=== PATIENT | male | born 1975 | race Hispanic/Latino ===

== ENCOUNTER 2017-11-14 11:49 | Emergency (ER) | payer OTHER ==
[~2017-11-14] VITALS: Ht 170.2 cm; Wt 102.1 kg
[~2017-11-14 11:49] MED LIST: ATENOLOL100 M1 PO; CINNAMON500 M1 PO; MULTIPLE VITAM1 EAC2 PO
[2017-11-14 12:10] LABS: ABSOLUTE BASOPHIL COUNT 0 /CUMM (0.0-0.2); ABSOLUTE EOSINOPHIL COUNT 0.2 /CUMM (0.0-0.7); ABSOLUTE GRANULOCYTE CT 6.3 /CUMM (1.4-6.5); ABSOLUTE LYMPH COUNT 2.4 /CUMM (1.2-3.4); ABSOLUTE MONOCYTE COUNT 0.4 /CUMM (0.10-0.60); BASOPHIL % 0.4 % (0.0-2.0); EOSINOPHIL % 2.2 % (0-5); GRANULOCYTE % 67.6 % (42.2-75.2); HEMATOCRIT 49.8 % (42-52); MEAN CORPUSCULAR HGB 29.3 PG (27.0-31.0); MEAN CORPUSCULAR HGB CONC 33.7 G/DL (33.0-37.0); MEAN CORPUSCULAR VOLUME 87.1 FL (80.0-94.0); MEAN PLATELET VOLUME 6.4 FL (7.4-10.4); PLATELET COUNT 287 /CUMM (130-400); RBC DISTRIBUTION WIDTH 15.5 % (11.5-14.5); RED BLOOD CELL CT 5.71 /CUMM (4.70-6.10); WHITE BLOOD CELL COUNT 9.4 /CUMM (4.8-10.8)
--- NOTE | 2017-11-14 12:44 | ED PSYCHIATRIC COMPLAINT ---
See Addendum History of Present Illness General Chief Complaint: ETOH/Drug Related Complaint Stated Complaint: ETOH DETOX Source: patient, family Exam Limitations: no limitations Vital Signs & Intake/Output Vital Signs & Intake/Output Vital Signs Date Time Temp Pulse Resp B/P B/P Pulse O2 O2 Flow FiO2 Mean Ox Delivery Rate 11/15 628 106 150/95 11/15 0628 97.8 106 18 150/95 11/15 0628 97.8 106 18 150/95 99 Room Air 11/15 0430 97.8 88 16 148/82 11/15 0240 97.9 94 16 154/84 11/15 0240 97.9 94 16 154/84 97 Room Air 11/15 0118 98.3 93 18 169/92 98 Room Air / 0116 98.3 93 18 169/92 11/14 2325 99.2 93 18 151/93 11/14 2216 99.2 93 18 151/93 95 Room Air 11/14 1754 97.9 98 18 145/84 97 08 1154 97.1 100 18 152/96 97 Room Air ED Intake and Output 11/15 0000 11/14 1200 Intake Total 0 Output Total Balance 0 Intake, Oral 0 Patient 225 lb Weight Allergies Coded Allergies: NO KNOWN ALLERGIES (11/24/11) Reconcile Medications Atenolol 100 MG TABLET 1 TAB PO DAILY BP (Reported) Cinnamon Bark (Cinnamon) 500 MG CAPSULE 2 CAP PO DAILY SUPPLEMENT (Reported) Multivitamin (Multiple Vitamins) 1 EACH TABLET 1 TAB PO DAILY SUPPLEMENT ( Reported) Higginson-3/Dha/Epa/Fish Oil (Fish Oil 1,360 MG Softgel) (Unknown Strength) CAPSULE (Unknown Dose) PO DAILY SUPPLEMENT (Reported) Triage Note: 42 YEAR OLD MALE TO ER WITH HIS , PT VERY WEEPY AND STATES THAT HE NEEDS HELP TO STOP DRINKING, STATES THAT HE WAS SOBER FOR OVER 7 MONTHS, WENT TO VISIT FAMILY IN [facility] AND STARTED DRINKING AGAIN 1 MONTH AGO. PT STATES THAT HE HAS BEEN HAVING POSITIVE SI THOUGHTS AND IS JUST VERY DEPRESSED, DENIES HISTORY OF SEIZURES. Triage Nurses Notes Reviewed? yes Onset: Gradual Duration: week(s): HPI: 42 old male presents emergency department requesting alcohol detox. Patient states that he was sober for over 7 months and then he was visiting his family in [place] for the past month. Patient's last drink was earlier today. Patient reports depression relating to his drinks and states he has had suicidal thoughts recently as well. Patient states that he does not believe he would act on these suicidal thoughts. Patient has no history of alcohol withdrawal related seizures in the past. He denies drug use, HI. (Jelly Garcia) Past History Travel History Traveled to [place] past 21 day No Medical History Any Pertinent Medical History? see below for history Neurological: NONE EENT: NONE Cardiovascular: hypertension Respiratory: NONE Gastrointestinal: NONE Hepatic: NONE Renal: NONE Musculoskeletal: NONE Psychiatric: alcohol dependence Endocrine: NONE Blood Disorders: NONE Cancer(s): NONE BLOOD AND PLASMA LABORATORY ASSISTANT/Reproductive: NONE Isolation History: Standard Surgical History Surgical History: non-contributory Psychosocial History Who do you live with Spouse What is your primary language Czech Tobacco Use: Never used ETOH Use: alcoholic Illicit Drug Use: marijuana Family History Hx Contributory? No (Jelly Garcia) Review of Systems Review of Systems Constitutional: Reports: no symptoms. EENTM: Reports: no symptoms. Respiratory: Reports: no symptoms. Cardiovascular: Reports: no symptoms. GI: Reports: no symptoms. Genitourinary: Reports: no symptoms. Musculoskeletal: Reports: no symptoms. Skin: Reports: no symptoms. Neurological/Psychological: Reports: see HPI. Hematologic/Endocrine: Reports: no symptoms. Immunologic/Allergic: Reports: no symptoms. All Other Systems: Reviewed and Negative (Jelly Garcia) Physical Exam Physical Exam General Appearance: well developed/nourished, alert, awake, tearful Head: atraumatic, normal appearance Eyes: Bilateral: normal appearance. Ears, Nose, Throat: hearing grossly normal Neck: normal inspection, supple, full range of motion Respiratory: normal breath sounds, no respiratory distress, lungs clear Cardiovascular: regular rate/rhythm Gastrointestinal: normal bowel sounds, soft, non-tender, no organomegaly Extremities: normal range of motion Neurological/Psychiatric: no motor/sensory deficits, awake, tearful Appearance/Memory/Insight: appropriate appearance, appropriate insight Behavoir/Eye Contact/Speech: cooperative, good eye contact Thoughts/Hallucinations: normal thought pattern, no apparent hallucination Skin: intact, normal color, warm/dry SAD PERSONS SAD PERSONS Response Value Male Sex? yes 1 Depression/Hopelessness? yes 2 Excessive Ethanol/Drug Use? yes 1 Social Support? has support 0 Total 4 SAD PERSONS Done? yes (Kinga SEGOVIA,Jelly Matthews) Progress Differential Diagnosis: drug intoxication, drug overdose, drug withdrawal, suicidal ideation, depression Plan of Care: Orders Procedure Date/time Status Regular Diet 11/14 D Active Continuous Observation Monitor 11/14 120 Active CIWA 11/14 120 Active ED CRISIS PSYCH CONSULT 11/15 1207 Active URINE DRUG SCREEN FOR ER ONLY 11/14 115 Complete ETHANOL 11/14 115 Complete COMPREHENSIVE METABOLIC PANEL 11/14 115 Complete CBC WITHOUT DIFFERENTIAL 11/14 115 Complete Current Medications Sig/Malik Start time Last Medication Dose Stop Time Status Admin Atenolol 100 MG DAILY 11/15 899 UNVr (Tenormin) Lorazepam 2 MG FOUR TIMES A DAY PRN 11/15 0130 UNVr 11/15 (Ativan) 0125 Clonidine 0.1 MG Q8 11/14 190 UNVr 11/15 (Catapres) 0629 Gabapentin 300 MG Q8 11/14 190 UNVr 11/15 (Neurontin) 0629 Laboratory Tests 11/14/17 1208: Urine Opiates Screen < 100, Methadone Screen < 40, Barbiturate Screen < 60, Ur Phencyclidine Scrn < 6.00, Amphetamines Screen < 100, U Benzodiazepines Scrn < 85, Urine Cocaine Screen < 50, Urine Cannabis Screen 18.70 11/14/17 1159: Anion Gap 16, Estimated GFR > 60, BUN/Creatinine Ratio 20.0, Glucose 107 H, Calcium 8.4, Total Bilirubin 0.9, AST 201 H, ALT 215 H, Alkaline Phosphatase 93, Total Protein 7.3, Albumin 4.2, Globulin 3.1, Albumin/Globulin Ratio 1.4, CBC w Diff NO MAN DIFF REQ, RBC 5.71, MCV 87.1, MCH 29.3, MCHC 33.7, RDW 15.5 H , MPV 6.4 L, Gran % 67.6, Lymphocytes % 25.7, Monocytes % 4.1, Eosinophils % 2.2, Basophils % 0.4, Absolute Granulocytes 6.3, Absolute Lymphocytes 2.4, Absolute Monocytes 0.4, Absolute Eosinophils 0.2, Absolute Basophils 0, Serum Alcohol 338.0 Patient's alcohol level was initially elevated greater than 300. Formed that given his thoughts of suicide and he would require crisis evaluation. Patient informed that likely be staying overnight here in the emergency department. After waiting here in the emergency department for several hours patient is becoming enhancing requesting to leave. I informed the patient that he could not leave given his suicidal ideation. I informed him that crisis evaluate him until his alcohol level reaches 0 and that this would not happen until tomorrow morning. Patient understands why he is being kept in the emergency department. Patient reporting left-sided abdominal pain at this time. His labs are stable, mild LUQ abdominal tenderness without guarding on exam. I offered the patient medication and CT imaging. He elected to proceed with IM Toradol however reports he declines imaging at this time. The patient was signed out to Dr. Matamoros pending crisis evaluation and further CIWA scores Hand-Off Endorsed To: Chidi Matamoros MD Endorsed Time: 2306 Pending: consult, other (CIWA and crisis) (Kinga SEGOVIA,Jelly Matthews) Comments: Cleared by psychiatry for discharge. (Steve Tierney MD) Departure Departure Condition: Stable Referrals: Amada RODRIGUEZ,Jose Maria Gutierrez (PCP/Family) (Jelly Garcia) PA/FRUIT DUMPER Co-Sign Statement Statement: ED Attending supervision documentation- [] I saw and evaluated the patient. I have also reviewed all the pertinent lab results and diagnostic results. I agree with the findings and the plan of care as documented in the PA's/FRUIT DUMPER's documentation. [x] I have reviewed the ED Record and agree with the PA's/FRUIT DUMPER's documentation. 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
[2017-11-14] MEDS ORDERED: FISH OIL 1,3601 EACH PO (14:13)
--- NOTE | 2017-11-15 08:26 | ED PSYCH CRISIS CONSULTATION ---
Crisis Consult Basic Assessment Date of Consult: 11/15/17 Responsible Person/Accompanied By: self/ Insurance Authorization: Insurance #1: Insurance name: [employer] [place] [place] Phone number: Policy number: [id number] Group number: [id number] Authorization number: ED Provider: Patient's ED Provider: Jelly Garcia Primary Care Physician: Patient's PCP: Jose Maria Ybarra MD PCP's Current Psychiatrist: none Chief Complaint: ETOH/Drug Related Complaint Patient's Quote: I went on a art Present Illness: Pt is a 42 yo male presenting to [facility] ED yesterday requesting etoh detox and reported SI. Pt BAL: 338. Pt has had prior GH detox and IOP in 2011 and 2013. Pt reports he has been sober for several months but relapsed and has been drinking 1 liter vodka past week. Pt works for a [employer] and travels around the world for several week assignments. Pt reports hx of benders when he is home in between assignments. Pt reports after last detox in 2013 he had been going to [employer] meetings but has recently stopped going. Pt denies SI. Pt states he doesn't remembering expressing SI and reports no hx of self harm. Pt rates his depression score as 2/10. 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 C-SSRS completed in chart. Pt denies recent substance use. Pt reports no psychiatric tx hx is only takes medication for blood pressure. Pt denies need for inpatient detox but requests outpatient tx support. Case reviewed with Dr Ybarra. Recommendation for IOP level of care. Pt and are in agreement with recommendation and pt has been scheduled for a IOP intake appointment today ( 11/15/17) at 2pm. Patient's Address: [address] [place] [address] Other Phone Number: Who Do You Live With? Family Family/Informants Interviewed: collateral provided by pt Stephany . She reports pt has been drinking since returning last week from family visit in [place]. She reports pt travels often for work. She reports concern that pt needs help to stop drinking. She denies concerns that he is a safety risk. She agrees with plan for pt to participate in IOP. Allergies - Coded Allergies: NO KNOWN ALLERGIES (11/24/11) Current Medications - Scheduled Medications Atenolol 100 MG TABLET 1 TAB PO DAILY BP (Reported) Entered as Reported by Larry Harley on 03/23/14916 Cinnamon Bark (Cinnamon) 500 MG CAPSULE 2 CAP PO DAILY SUPPLEMENT (Reported) Entered as Reported by Larry Harley on 03/23/14917 Multivitamin (Multiple Vitamins) 1 EACH TABLET 1 TAB PO DAILY SUPPLEMENT ( Reported) Entered as Reported by Larry Harley on 03/23/14916 Frederic-3/Dha/Epa/Fish Oil (Fish Oil 1,360 MG Softgel) (Unknown Strength) CAPSULE (Unknown Dose) PO DAILY SUPPLEMENT (Reported) Entered as Reported by Danae Reddy on 11/14/17 1413 Laboratory Results: Laboratory Tests 11/14/17 1208: Urine Opiates Screen < 100, Methadone Screen < 40, Barbiturate Screen < 60, Ur Phencyclidine Scrn < 6.00, Amphetamines Screen < 100, U Benzodiazepines Scrn < 85, Urine Cocaine Screen < 50, Urine Cannabis Screen 18.70 11/14/17 1159: Anion Gap 16, Estimated GFR > 60, BUN/Creatinine Ratio 20.0, Glucose 107 H, Calcium 8.4, Total Bilirubin 0.9, AST 201 H, ALT 215 H, Alkaline Phosphatase 93, Total Protein 7.3, Albumin 4.2, Globulin 3.1, Albumin/Globulin Ratio 1.4, CBC w Diff NO MAN DIFF REQ, RBC 5.71, MCV 87.1, MCH 29.3, MCHC 33.7, RDW 15.5 H , MPV 6.4 L, Gran % 67.6, Lymphocytes % 25.7, Monocytes % 4.1, Eosinophils % 2.2, Basophils % 0.4, Absolute Granulocytes 6.3, Absolute Lymphocytes 2.4, Absolute Monocytes 0.4, Absolute Eosinophils 0.2, Absolute Basophils 0, Serum Alcohol 338.0 Past History Past Medical History Neurological: NONE EENT: NONE Cardiovascular: hypertension Respiratory: NONE Gastrointestinal: NONE Hepatic: NONE Renal: NONE Musculoskeletal: NONE Psychiatric: alcohol dependence Endocrine: NONE Blood Disorders: NONE Cancer(s): NONE AUTOMOTIVE SALES EXECUTIVE/Reproductive: NONE Past Surgical History Surgical History: non-contributory Psychosocial History Strengths/Capabilities: Patient is employed; has a supportive , acknowledges he has an addiction to alcohol and marijauna and is willing to attend our IOP. Physical Limitations (Interventions): denies Psychiatric Treatment History Psych Treatment Psychiatric Treatment No Inpatient Treatment No Outpatient Treatment No Diagnosis by History: etoh Substance Use/Abuse History Drug Use/Abuse Substances Used/Abused Yes Substance Used/Abused Alcohol Last Used yesterday How much used/taken 1 liter How often daily For how long past week Substance Abuse Treatment Substance Abuse Treatment Past Substance Abuse TX Yes Inpatient Treatment Yes Outpatient Treatment Yes Location of Treatment [facility] 2011 and 2013; [facility] Reason for Treatment etoh Response to Treatment pt sober 2013 until relapse Apr 2017; Pt sober past 5 months with relapse last week. Comments: pt reports problematic binging drinking has been more frequent Pt requesting IOP and plan to resume AA meetings Current Mental Status Mental Status Orientation: Person, Place, Situation Affect: WNL Speech: WNL Neuro-vegetative: WNL Appearance Appearance- Dress/Hygiene: hospital scrubs; calm; good eyr contact Behaviors Thought Process: WNL Thought Content: WNL Memory: WNL Insight: Fair SI/HI Risk Assessment Past Suicidal Ideation/Attempts No Current Suicidal Ideation/Att No Past Homicidal Ideation/Att: No Current Homicidal Ideation/Attempts No Degree of Intent: None Gravely Disabled: Poor Judgment Risk Factors: SA/MH hospitalized, substance abuse, male Lethality Ratin (mild) PTSD Checklist PTSD Done? patient declined ED Management Sitter: Yes Restraints: No DSM5/PS Stressors/Medical Prob Diagnosis' (DSM 5, Stressors, Medical): Alcohol Use D/O F10.20 Unspecified Depression F32.9 family illness high blood pressure Current GAF: 35 Comments: pt has a hx of alcohol abuse with long periods of sobriety and binging. Pt reports motivation to stop drinking. Departure Disposition Psych Medical Clearance Date: 11/15/17 Medically Cleared at: 0730 Time Started: 729 Time Ended: 814 Psychiatrist Consulted: Amy Ybarra MD Date Disposition Established: 11/15/17 Time Disposition Established: 819 Plan for Disposition - Modality: IOP Facility: [facility] Follow-up Appt Date: 11/15/17 Follow-Up Appt Time: 1400 Contact: [phone] Rationale for Disposition: etoh treatment; assess for medications Referrals Amada RODRIGUEZ,Jose Maria Gutierrez (PCP/Family)
[2017-11-15 08:55] VITALS: BP 154/93
== END 2017-11-15 09:19 ==
LOC: ERH 11:49
PROVIDERS: Emergency Medicine
DX: F10.129 Alcohol abuse with intoxication, unspecified (principal); R45.851 Suicidal ideations
CPT/HCPCS: 80307; 96372; G0463; G0480; J1885